=== PATIENT | male | born 1990 | race Caucasian/White ===

== ENCOUNTER 2017-05-08 19:45 | Emergency (ER) | payer SELFPAY ==
--- NOTE | 2017-05-08 21:08 | PDOC ---
Rapid Medical Evaluation Time Seen by Provider: 05/08/17 21:03 Medical Evaluation: 05/08/17 21:03 I have performed a brief in-person evaluation of this patient. The patient presents with a chief complaint of sorethroat, dry cough bodyaches. Reports taking acetaminophen at 11 am. States feeling weak. States mid chest discomfort with coughing and shortness of breath Pertinent physical exam findings: NAD HEENT: erythematous pharynx, non enlarged tonsils lung clear, cough occasionally in triage rapid heart rate I have ordered the following: antipyretic influenza swab The patient will proceed to the Ed for further evaluation.
[2017-05-08 21:10] VITALS: BP 104/68; PULSE 114; BMI 22.5
[2017-05-08] MEDS ORDERED: ACETAMINOPHEN 500 MG TABLET (FP) PO ONE (21:14)
--- NOTE | 2017-05-09 00:22 | PDOC ---
History of Present Illness - General History Source: Patient Exam Limitations: No Limitations - History of Present Illness Initial Comments: 05/09/17 00:24 The patient is a 27 year old male, with no significant past medical history, who presents to the emergency department with dry cough, malaise, generalized diffuse body aches, fever, and chills. He states he feels like he has the flu. He states he has been unable to smoke secondary to his symptoms. He denies chest pain, shortness of breath, headache and dizziness. He denies fever, nausea, vomit, diarrhea and constipation. He denies dysuria, frequency, urgency and hematuria. Allergies: NSAIDS <Michelle Rangel - Last Filed: 05/09/17 00:25> - General History Source: Patient <RaoulQuan kirk - Last Filed: 05/09/17 19:35> - General Chief Complaint: Cold Symptoms Stated Complaint: COLD SYMPTOMS Time Seen by Provider: 05/08/17 21:03 Past History <Michelle Rangel - Last Filed: 05/09/17 00:25> - Suicide/Smoking/Psychosocial Hx Smoking History: Current some day smoker Information on smoking cessation initiated: No Hx Alcohol Use: No Drug/Substance Use Hx: No <Quan Weeks - Last Filed: 05/09/17 19:35> - Past Medical History Allergies/Adverse Reactions: Allergies Allergy/AdvReac Type Severity Reaction Status Date / Time NSAIDS (Non-Steroidal Allergy Verified 05/08/17 21:13 Anti-Inflamma Home Medications: Ambulatory Orders Oseltamivir Phosphate [Tamiflu -] 75 mg PO BID #10 capsule 05/09/17 Review of Systems - Review of Systems Able to Perform ROS?: Yes Comments:: 05/09/17 00:24 CONSTITUTIONAL: (+) fever, chills, generalized weakness, malaise, Absent: diaphoresis, loss of appetite HEENT: Absent: rhinorrhea, nasal congestion, throat pain, throat swelling, difficulty swallowing, mouth swelling, ear pain, eye pain, visual Changes CARDIOVASCULAR: Absent: chest pain, syncope, palpitations, irregular heart rate, lightheadedness , peripheral edema RESPIRATORY: (+) dry cough, Absent: shortness of breath, dyspnea with exertion, orthopnea, wheezing, stridor, hemoptysis GASTROINTESTINAL: Absent: abdominal pain, abdominal distension, nausea, vomiting, diarrhea, constipation, melena, hematochezia GENITOURINARY: Absent: dysuria, frequency, urgency, hesitancy, hematuria, flank pain, genital pain MUSCULOSKELETAL: (+) diffuse body aches. Absent: arthralgia, joint swelling SKIN: Absent: rash, itching, pallor HEMATOLOGIC/IMMUNOLOGIC: Absent: easy bleeding, easy bruising, lymphadenopathy, frequent infections ENDOCRINE: Absent: unexplained weight gain, unexplained weight loss, heat intolerance, cold intolerance NEUROLOGIC: Absent: headache, focal weakness or paresthesias, dizziness, unsteady gait, seizure, mental status changes, bladder or bowel incontinence PSYCHIATRIC: Absent: anxiety, depression, suicidal or homicidal ideation, hallucinations. <Michelle Rangel - Last Filed: 05/09/17 00:25> *Physical Exam - Vital Signs Last Vital Signs Temp Pulse Resp BP Pulse Ox 102.9 F H 114 H 20 104/68 97 05/08/17 21:05 05/08/17 21:05 05/08/17 21:05 05/08/17 21:05 05/08/17 21:05 - Physical Exam Comments: 05/09/17 00:25 GENERAL: (+) In mild distress. Well developed, well nourished. Awake and alert. HEENT: Normocephalic, atraumatic. PERRLA, EOMI. No conjunctival pallor. Sclera are non- icteric. Moist mucous membranes. Oropharynx is clear. NECK: Supple. Full ROM. No JVD. Carotid pulses 2+ and symmetric, without bruits. No thyromegaly. No lymphadenopathy. CARDIOVASCULAR: Regular rate and rhythm. No murmurs, rubs, or gallops. Distal pulses are 2+ and symmetric. PULMONARY: No evidence of respiratory distress. Lungs clear to auscultation bilaterally. No wheezing, rales or rhonchi. ABDOMINAL: Soft. Non-tender. Non-distended. No rebound or guarding. No organomegaly. Normoactive bowel sounds. MUSCULOSKELETAL Normal range of motion at all joints. No bony deformities or tenderness. No CVA tenderness. EXTREMITIES: No cyanosis. No clubbing. No edema. No calf tenderness. SKIN: Warm and dry. Normal capillary refill. No rashes. No jaundice. NEUROLOGICAL: Alert, awake, appropriate. Cranial nerves 2-12 intact. Normoreflexic in the upper and lower extremities. Normal speech. Toes are down-going bilaterally. Gait is normal without ataxia. PSYCHIATRIC: Cooperative. Good eye contact. Appropriate mood and affect. <Michelle Rangel - Last Filed: 05/09/17 00:25> - Vital Signs Last Vital Signs Temp Pulse Resp BP Pulse Ox 102.9 F H 114 H 20 104/68 97 05/08/17 21:05 05/08/17 21:05 05/08/17 21:05 05/08/17 21:05 05/08/17 21:05 <Quan Weeks - Last Filed: 05/09/17 19:35> ED Treatment Course - Medications Given in the ED: ED Medications Discontinued Medications Generic Name Dose Route Start Last Admin Trade Name Freq PRN Reason Stop Dose Admin Acetaminophen 975 mg 05/08/17 21:14 05/08/17 21:15 Tylenol - PO 05/08/17 21:15 975 mg ONCE ONE Administration <Michelle Rangel - Last Filed: 05/09/17 00:25> - Medications Given in the ED: ED Medications Discontinued Medications Generic Name Dose Route Start Last Admin Trade Name Freq PRN Reason Stop Dose Admin Acetaminophen 975 mg 05/08/17 21:14 05/08/17 21:15 Tylenol - PO 05/08/17 21:15 975 mg ONCE ONE Administration <Quan Weeks - Last Filed: 05/09/17 19:35> Medical Decision Making - Medical Decision Making 05/09/17 19:35 scribeDr. Desi: The scribe's documentation has been prepared under my direction and personally reviewed by me in its entirery. I confirm that the note above accurately reflects all work, treatment, procedures, and medical decision making performed by me. <Quan Weeks - Last Filed: 05/09/17 19:35> *DC/Admit/Observation/Transfer - Attestations Scribe Attestion: 05/09/17 00:26 Documentation prepared by Michelle Rangel, acting as director of graduate medical education for Quan Weeks DO <Michelle Rangel - Last Filed: 05/09/17 00:25> - Discharge Dispostion Admit: No <Quan Weeks - Last Filed: 05/09/17 19:35> Diagnosis at time of Disposition: Influenza A - Discharge Dispostion Disposition: HOME Condition at time of disposition: Stable - Prescriptions Prescriptions: Oseltamivir Phosphate [Tamiflu -] 75 mg PO BID #10 capsule - Referrals Referrals: STAFF,NOT ON [Primary Care Provider] - Ariel Willoughby MD [Staff Physician] - - Patient Instructions Printed Discharge Instructions: DI for Influenza -- Adult Additional Instructions: Please have bed rest until you are completely cleared of your symptoms as you are currently contagious. Drink plenty of fluids. Tylenol for pain and fever. Take medication as directed. - Post Discharge Activity Forms/Work/School Notes: Back to Work
[2017-05-09] MEDS ORDERED: OSELTAMIVIR PHOSPHATE 75 MG CAPSULE PO ONE (01:15)
[2017-05-09] MEDS ORDERED: OSELTAMIVIR PHOSPHATE 75 MG CAPSULE ONE (01:21)
[2017-05-09 01:40] VITALS: TEMP 98.1
== END 2017-05-09 01:29 | disposition home or self-care (01) ==
LOC: JER 19:45 → JERFT 19:45 → JER 05-09 01:29
DX: J09.X2 Influenza due to identified novel influenza A virus with other respiratory manifestations (principal)
CPT/HCPCS: 87804; 99281-25